=== PATIENT | male | born 1965 | race Caucasian/White ===

== ENCOUNTER → 2017-04-19 | Outpatient (CLI) | payer BC ==
[~2017-04-19] MED LIST: ASPI81TA94 PO; ATOR20TA22 PO; LOSA100T67 PO
--- NOTE | 2017-04-19 12:50 | EKG ---
FACILITY: [facility] PATIENT NAME: MANUEL VARGHESE : [id number] MR: [id number] V: [id number] EXAM DATE: ORDERING PHYSICIAN: NELSY LARSON TECHNOLOGIST: CECI SOLIZ Test Reason : HTN, ARRYTHMIA Blood Pressure : / mmHG Vent. Rate : 074 BPM Atrial Rate : 074 BPM P-R Int : 170 ms QRS Dur : 094 ms QT Int : 392 ms P-R-T Axes : 044 003 030 degrees QTc Int : 435 ms Normal sinus rhythm rsr' v1 of uncertain etiology borderline criteria for lvh Confirmed by SHAYNE LARSON ([id number]) on 04/19/2017 5:33:32 PM Referred By: ENO Confirmed By:SHAYNE LARSON
== END ==
LOC: RESP 10:08
PROVIDERS: ATTEND Internal Medicine
DX: I49.9 Cardiac arrhythmia, unspecified (principal); I10 Essential (primary) hypertension